=== PATIENT | male | born 1980 | race Caucasian/White ===

== ENCOUNTER 2016-12-30 21:38 | Emergency (ER) | payer OTHER ==
[~2016-12-30] VITALS: Ht 182.9 cm; Wt 72.7 kg
[2016-12-31 01:39] VITALS: BP 135/71
== END 2016-12-31 01:41 | disposition home or self-care (01) ==
LOC: EMS 21:40
DX: F10.129 Alcohol abuse with intoxication, unspecified (principal)
CPT/HCPCS: 99283